=== PATIENT | female | born 1985 | race Caucasian/White ===

== ENCOUNTER 2017-10-18 19:43 | Emergency (ER) | payer OTHER ==
--- NOTE | 2017-10-18 19:47 | PDOC ---
Rapid Medical Evaluation Time Seen by Provider: 10/18/17 19:46 Medical Evaluation: 10/18/17 19:46 I have performed a brief in-person evaluation of this patient. The patient presents with a chief complaint of: sent by patricia LINO, possible topher Pertinent physical exam findings: tenderness to RUQ I have ordered the following: labs, urine The patient will proceed to the ED for further evaluation. Discharge Disposition - Diagnosis RUQ pain - Referrals - Patient Instructions - Post Discharge Activity
[2017-10-18 19:49] VITALS: PULSE 67; BMI 28.9
--- NOTE | 2017-10-18 20:03 | PDOC ---
History of Present Illness - General Chief Complaint: Pain Stated Complaint: PCP SENT/ABDOMINAL PAIN Time Seen by Provider: 10/18/17 19:46 - History of Present Illness Initial Comments: 10/18/17 20:06 The patient is a 32 year old female with a history of HTN who presents for evaluation of abdominal pain. The patient reports onset of RUQ abdominal pain 1 day ago worse with some foods with some associated radiation to the right shoulder. She states that she has never had similar symptoms in the past and was evaluated at [facility] urgent care and sent to the ED for further evaluation. The patient otherwise denies fevers, chills, SOB, chest pain, nausea, vomiting , or changes with urination or bowel movements. She also denies any vaginal bleeding, or vaginal discharge. Past History - Past Medical History Allergies/Adverse Reactions: Allergies Allergy/AdvReac Type Severity Reaction Status Date / Time Penicillins Allergy Mild Verified 10/18/17 19:49 Home Medications: Ambulatory Orders NK [No Known Home Medication] 10/18/17 - Suicide/Smoking/Psychosocial Hx Smoking History: Never smoked Hx Alcohol Use: Yes (social) Review of Systems - Review of Systems Comments:: 10/18/17 20:09 Constitutional: No fevers, chills, fatigue, malaise HEENT: No Rhinorrhea, nasal congestion, visual changes Cardiovascular: No chest pain, syncope, palpitations, lightheadedness Respiratory: No Cough, SOB, Hemoptysis, Gastrointestinal: Abdominal pain. No Nausea, Vomiting, Constipation, Diarrhea, Melena Genitourinary: No Dysuria, Frequency, Urgency, Hesitancy, Hematuria, Flank pain Musculoskeletal: No Myalgia, arthralgia Skin: No rashes, itching, bruising, pallor Neurologic: No Headache, Dizziness, Numbness, Weakness, or Tingling Psychiatric: No Hallucinations. No SI or HI *Physical Exam - Vital Signs Last Vital Signs Temp Pulse Resp BP Pulse Ox 98.2 F 67 20 179/85 99 10/18/17 19:47 10/18/17 19:47 10/18/17 19:47 10/18/17 19:47 10/18/17 19:47 - Physical Exam Comments: 10/18/17 20:09 General Appearance: Nourished. No Apparent Distress HEENT: EOMI, EDWADR. No Pharyngeal Erythema, Tonsillar Exudate, Tonsillar Erythema Neck: No Cervical Lymphadenopathy Respiratory/Chest: Lungs Clear, Normal Breath Sounds. No Crackles, Rales, Rhonchi, Wheezing Cardiovascular: Regular Rhythm, Regular Rate. No Murmur, Gallops, Rubs Gastrointestinal/Abdominal: Normal Bowel Sounds, Soft. Mild tenderness to deep palpation in the RUQ. No Guarding, Rebound, Musculoskeletal: No CVA Tenderness Extremity: Normal Capillary Refill Integumentary: Normal Color, Dry, Warm Neurologic: Fully Oriented, Alert, Normal Mood/Affect, Normal Response, ED Treatment Course - LABORATORY CBC & Chemistry Diagram: 10/18/17 20:34 10/18/17 20:34 Medical Decision Making - Medical Decision Making 10/18/17 20:10 The patient is a 32 year old female with a history of HTN who presents for evaluation of abdominal pain. Differential includes but is not limited to: Cholecystitis, Pancreatitis, Gastritis, UTI, infectious, metabolic derangement. Given the patient's physical exam and history, we will obtain a cbc, cmp, lipase, ua, urine preg and gallbladder US to evaluate further for possible etiologies. We will continue to monitor and reassess in the meantime. 10/18/17 23:51 CBC, cmp, lipase, ua, urne preg are unremarkable. US demonstrates right sided hydronephrosis without evidence of gallstones as read by our radiologist. Given the patient symptoms, it is possible her symptoms are due to a kidney stone. We will obtain a spiral renal CT to evaluate for kidney stones. We will continue to monitor and reassess. *DC/Admit/Observation/Transfer Diagnosis at time of Disposition: RUQ pain - Referrals Referrals: Elif Joseph [Primary Care Provider] - - Patient Instructions - Post Discharge Activity
--- NOTE | 2017-10-18 20:04 | PDOC ---
Attending Attestation - HPI HPI: 10/18/17 20:57 The patient is a 32 year old female with past medical history of HTN presents to the ED complaining of right upper quadrant pain which radiated to her right shoulder since last night. The patient reports earlier today she visited [facility] urgent care and was recommended to follow up with the ED because they suspect the problem is emerging from the gallbladder. The patient reports she had spicy food last week and was trying to burp when the pain manifested and remained on her epigastric region.The patient reports the worse gets worse after eating without any relieving factors. The patient reports the pain stayed constant until last night when she was woken up from her sleep due to the pain. The patient reports symptoms of nausea but denies any vomiting. The patient denies chest pain, shortness of breath, headache and dizziness. Denies fever, chills, diarrhea and constipation, vaginal discharge or bleeding Denies dysuria, frequency, urgency and hematuria. Allergies: Penicillins Past surgical history: None reported Social history: None reported - Physicial Exam PE: 10/18/17 20:57 GENERAL: Awake, alert, and fully oriented, in no acute distress HEAD: No signs of trauma EYES: PERRLA, EOMI, sclera anicteric, conjunctiva clear ENT: Auricles normal inspection, hearing grossly normal, nares patent, oropharynx clear without exudates. Moist mucosa NECK: Normal ROM, supple, no lymphadenopathy, JVD, or masses LUNGS: Breath sounds equal, clear to auscultation bilaterally. No wheezes, and no crackles HEART: Regular rate and rhythm, normal S1 and S2, no murmurs, rubs or gallops ABDOMEN: (+) Right upper quadrant tenderness. Soft, normoactive bowel sounds. No guarding, no rebound. No masses EXTREMITIES: Normal range of motion, no edema. No clubbing or cyanosis. No cords, erythema, or tenderness NEUROLOGICAL: Cranial nerves II through XII grossly intact. Normal speech, normal gait SKIN: Warm, Dry, normal turgor, no rashes or lesions noted. - Medical Decision Making 10/18/17 20:58 Documentation prepared by Wendy Tovar, acting as medical anthropology director for Tree Pollard DO. <Wendy Tovar - Last Filed: 10/18/17 20:57> - Resident Resident Name: Delbert Parker - ED Attending Attestation I have performed the following: I have examined & evaluated the patient, The case was reviewed & discussed with the resident, I agree w/resident's findings & plan, Exceptions are as noted - Medical Decision Making 10/18/17 20:04 I, Dr. Tere Pollard, DO, attest that this document has been prepared under my direction and personally reviewed by me in its entirety. I further attest, that it accurately reflects all work, treatment, procedures and medical decision -making performed by me. 10/18/17 20:37 a/p: 32yo female with intermittent RUQ pain -assoc with eating -concern for biliary disease vs PUD vs gastritis -will obtain labs, RUQ u/s -discussed plan with the patient who agrees with the plan -elevated bp on exam - noncomplaint with bystolic and hctz, states she hasn't taken them in over a month, however, no cp/sob or symptoms concerning for end organ damage from elevated bp 10/18/17 23:50 blood in urine - not currently menstruating RUQ u/s shows moderate hydro - concern for kidney stone will obtain noncon ct abd 10/19/17 00:04 pt states she underwent an ultrasound a few years ago - report shows b/l mild hydro states hx of microscopic hematuria pt updated on need for ct noncon abd/pelvis agrees with the plan denies pain or nausea 10/19/17 00:53 ct abd/pelvis does not show acute uropathy or hydro. no bladder calculi discussed the ct findings with the patient discussed restarting her bp meds discussed follow up with urology for further eval of microscopic hematuria discussed follow up with GI if abd pain continues labs reviewed with the patient. The patient is stable for d/c to home. No pain while in the ED <Tere Pollard - Last Filed: 10/19/17 00:57> Discharge Disposition - Discharge Dispostion Admit: No <Tere Pollard - Last Filed: 10/19/17 00:57> - Diagnosis RUQ pain, Asymptomatic microscopic hematuria, Hypertension - Discharge Dispostion Disposition: HOME Condition at time of disposition: Stable - Referrals Referrals: Elif Joseph [Primary Care Provider] - Jorge A Ayala MD [Staff Physician] - Italo Monge MD [Staff Physician] - - Patient Instructions Printed Discharge Instructions: DI for Hematuria, High Blood Pressure, DI for Abdominal Pain-Adult Additional Instructions: Please make an appointment to see the urologist and your PMD. If the abdominal pain continues please also follow up with the [facility]. Please return to the ED with any further concerns or complaints. Please restart taking your blood pressure medications. - Post Discharge Activity Work/School Note: Back to Work
[2017-10-18] MEDS ORDERED: ACETAMINOPHEN 1000 MG/100 ML VIAL (NON FORMULARY) IVPB ONE (20:27)
[2017-10-18] MEDS ORDERED: SODIUM CHLORIDE 1,000 ML IV STA (20:27)
[2017-10-18] MEDS ORDERED: ACETAMINOPHEN INJECTION 100 ML IVPB ONE (20:40)
[2017-10-18 20:48] LABS: BASO % 0.7 % (0-2.0); EOS % 4.8 % (0-4.5); HEMOGLOBIN 13.3 GM/dL (10.7-15.3); MCH 28.9 pg (25.7-33.7); MEAN PLT VOLUME 8.7 fl (7.5-11.1); MONO % 7.8 % (3.8-10.2); NEUT % 46.7 % (42.8-82.8); PLATELET COUNT 249 K/MM3 (134-434); RBC 4.59 M/mm3 (3.60-5.2); RDW 14.2 % (11.6-15.6)
[2017-10-18 21:07] LABS: INR 0.88 (0.82-1.09)
[2017-10-18 21:09] LABS: ACTIVATED PTT 27.9 SECONDS (26.9-34.4)
[2017-10-18 21:24] LABS: ALBUMIN 3.6 g/dl (3.4-5.0); ALK PHOS 64 U/L (45-117); ANION GAP 7 (8-16); BILIRUBIN,TOTAL 0.3 mg/dL (0.2-1.0); BLOOD UREA NITROGEN 25 mg/dL (7-18); CALCIUM 8.5 mg/dL (8.5-10.1); CHLORIDE 108 mmol/L (98-107); CO2 27 mmol/L (21-32); CREATININE 0.9 mg/dL (0.55-1.02); GLUCOSE,RANDOM 89 mg/dL (74-106); POTASSIUM 4.2 mmol/L (3.5-5.1); SGOT/AST 15 U/L (15-37); SGPT/ALT 19 U/L (12-78); SODIUM 142 mmol/L (136-145); TOT PROT 7.8 g/dl (6.4-8.2)
[2017-10-18 21:25] LABS: HCG,QUALITATIVE URINE NEGATIVE
[2017-10-18 21:29] LABS: URINE APPEARANCE CLEAR; URINE BILIRUBIN NEGATIVE (<2.0 mg/dL); URINE BLOOD 2+ (NEGATIVE); URINE COLOR LTYELLOW; URINE GLUCOSE (UA) NEGATIVE (NEGATIVE); URINE KETONE NEGATIVE (NEGATIVE); URINE LEUK ESTERASE NEGATIVE (NEGATIVE); URINE NITRITE NEGATIVE (NEGATIVE); URINE PROTEIN NEGATIVE (NEGATIVE); URINE UROBILINOGEN NEGATIVE mg/dL (0.2-1.0)
[2017-10-18 21:32] LABS: EPI CELLS RARE /HPF (FEW)
[2017-10-19 01:07] VITALS: BP 176/85; TEMP 98
== END 2017-10-19 01:07 | disposition home or self-care (01) ==
LOC: JER 19:43
PROC: 3E033NZ Introduction of Analgesics, Hypnotics, Sedatives into Peripheral Vein, Percutaneous Approach (ICD-10-PCS; principal; 2017-10-18)
DX: R31.29 Other microscopic hematuria (principal); I10 Essential (primary) hypertension
CPT/HCPCS: 36415; 74176; 76705-TC; 80053; 81003; 81015; 83690; 84703; 85025; 85610; 85730; 86850; 86900; 86901; 87086; 99283-25; J0131; J7030